=== PATIENT | male | born 1985 | race African-American/Black ===

== ENCOUNTER 2019-04-29 03:19 | Emergency (ER) | payer MEDICARE, MEDICAID ==
[~2019-04-29] VITALS: Ht 167.6 cm; Wt 116.0 kg
[2019-04-29 03:23] VITALS: BP 148/97
[2019-04-29] MEDS ORDERED: IBUPROFEN 600 MG TABLET ONE (03:46)
[2019-04-29] MEDS ORDERED: IBUPROFEN 600 MG TABLET PO ONE (04:00)
== END 2019-04-29 08:15 ==
LOC: ED 07:32
DX: S16.1XXA Strain of muscle, fascia and tendon at neck level, initial encounter (principal); S39.012A Strain of muscle, fascia and tendon of lower back, initial encounter; E11.9 Type 2 diabetes mellitus without complications; V49.49XA Driver injured in collision with other motor vehicles in traffic accident, initial encounter; Y93.89 Activity, other specified; Y92.89 Other specified places as the place of occurrence of the external cause; Y99.8 Other external cause status
CPT/HCPCS: 72020; 72050; 72072; 72110; 99283